=== PATIENT | female | born 1970 | race Caucasian/White ===

== ENCOUNTER → 2017-04-01 | Outpatient (CLI) | payer OTHER ==
--- NOTE | 2017-04-02 10:10 | MM ---
Reason for exam: screening (asymptomatic). Last mammogram was performed 4 years and 1 month ago. History: Patient is postmenopausal. Family history of breast cancer in 2 paternal aunts. Physical Findings: A clinical breast exam by your physician is recommended on an annual basis and results should be correlated with mammographic findings. MG Screening Mammo w CAD Bilateral CC and MLO view(s) were taken. Prior study comparison: March 16, 2013, bilateral digital screening mammo w/CAD. February 19, 2006, mammogram, performed at [facility]. There are scattered fibroglandular densities. There is no discrete abnormality. ASSESSMENT: Negative, BI-RAD 1 RECOMMENDATION: Routine screening mammogram of both breasts in 1 year.
== END | disposition home or self-care (01) ==
LOC: RADMAMWWP 10:05
PROVIDERS: ATTEND Family Medicine Adolescent Medicine
DX: Z12.31 Encounter for screening mammogram for malignant neoplasm of breast (principal)
CPT/HCPCS: 77067

== ENCOUNTER → 2017-10-31 | Outpatient (CLI) | payer OTHER ==
--- NOTE | 2017-10-31 11:52 | USB ---
Reason for exam: clinical finding. History: Patient is postmenopausal. Family history of breast cancer in 2 paternal aunts. Indicated problem(s): lump or thickening in the right breast. Physical Findings: Nurse Summary: Patient states doctor felt right breast lump x 1 week, Patient complains of bilatral breast achy x 2 months (nurse abran). US Breast BILAT Right complete breast ultrasound includes all four quadrants, the retroareolar region and axilla. Finding demonstrates no cystic or solid lesion seen. Left complete breast ultrasound includes all four quadrants, the retroareolar region and axilla. Finding demonstrates no cystic or solid lesion seen. These results were verbally communicated with the patient and result sheet given to the patient on 10/31/17. ASSESSMENT: Negative, BI-RAD 1 RECOMMENDATION: Return to routine screening mammogram schedule for both breasts. Back on schedule. Manage on a clinical basis with regard to palpable lumps.
== END ==
LOC: RADUSWWP 10:10
PROVIDERS: ATTEND Family Medicine
DX: N63.13 Unspecified lump in the right breast, lower outer quadrant (principal)

== ENCOUNTER 2018-05-27 01:52 | Emergency (ER) | payer OTHER ==
--- NOTE | 2018-05-27 03:09 | ED ---
Arrhythmia/Palpitations HPI - General Chief Complaint: Arrhythmia/Palpitations Stated Complaint: Chest tightness Time Seen by Provider: 05/27/18 02:09 Source: patient, EMS Mode of arrival: EMS Limitations: no limitations - History of Present Illness Initial Comments: This patient is a 48-year-old woman who presents to be evaluated for an episode of racing heart and shortness of breath. Patient states that she was trying to go to sleep tonight and then started awake noting that her heart was racing, and she was feeling somewhat short of breath. A family member checked her blood pressure and found that it was elevated. She states that for the past 2 weeks she also has had a sensation that her chest was full or she described this crowded. The patient states that over the following minutes the heart rate did seem to return to normal. The patient denies cardiac risk factors other than having a brother who had an WA at an early age. MD Complaint: "heart racing" -: minutes(s) Context: occurred during rest Associated Symptoms: shortness of breath - Related Data Allergies Allergy/AdvReac Type Severity Reaction Status Date / Time No Known Allergies Allergy Verified 05/27/18 03:07 Review of Systems ROS Statement: Those systems with pertinent positive or pertinent negative responses have been documented in the HPI. ROS Other: All systems not noted in ROS Statement are negative. Constitutional: Denies: fever, chills Respiratory: Reports: as per HPI, dyspnea. Denies: cough, wheezes, hemoptysis Cardiovascular: Reports: as per HPI, palpitations. Denies: dyspnea on exertion, orthopnea, edema, syncope Gastrointestinal: Denies: abdominal pain, nausea, vomiting Genitourinary: Denies: dysuria, hematuria Musculoskeletal: Denies: back pain Skin: Denies: rash Neurological: Denies: headache, weakness, numbness Past Medical History Past Medical History: Hypertension History of Any Multi-Drug Resistant Organisms: None Reported Past Surgical History: Appendectomy, Hysterectomy Past Psychological History: Anxiety Smoking Status: Former smoker Past Alcohol Use History: None Reported Past Drug Use History: Marijuana General Exam Limitations: no limitations General appearance: alert, in no apparent distress Head exam: Present: atraumatic, normocephalic Eye exam: Present: normal appearance. Absent: scleral icterus, conjunctival injection ENT exam: Present: normal oropharynx Respiratory exam: Present: normal lung sounds bilaterally. Absent: respiratory distress, wheezes, rales, rhonchi, stridor Cardiovascular Exam: Present: regular rate, normal rhythm, normal heart sounds. Absent: systolic murmur, diastolic murmur, rubs, gallop GI/Abdominal exam: Present: soft. Absent: distended, tenderness, guarding, rebound, mass Extremities exam: Present: normal inspection, normal capillary refill. Absent: pedal edema, calf tenderness Back exam: Present: normal inspection. Absent: CVA tenderness (R), CVA tenderness (L) Neurological exam: Present: alert Skin exam: Present: warm, dry, intact, normal color. Absent: rash Course Vital Signs 05/27/18 05/27/18 05/27/18 02:04 03:11 04:32 Temperature 98.0 F Pulse Rate 74 Respiratory 19 18 19 Rate Blood Pressure 152/99 O2 Sat by Pulse 100 Oximetry EKG Findings - EKG Results: EKG: interpreted by TIMBO, IRVINL, sinus rhythm (Rate 74 bpm), normal axis, normal QRS, normal ST/T - WA, Pacemaker, Normal: Normal tracing: normal tracing Medical Decision Making - Lab Data Result diagrams: 05/27/18 02:24 05/27/18 02:24 Lab Results 05/27/18 05/27/18 05/27/18 Range/Units 02:24 02:24 02:24 WBC 5.4 (3.8-10.6) k/uL RBC 4.85 (3.80-5.40) m/uL Hgb 14.4 (11.4-16.0) gm/dL Hct 43.7 (34.0-46.0) % MCV 90.1 (80.0-100.0) fL MCH 29.7 (25.0-35.0) pg MCHC 32.9 (31.0-37.0) g/dL RDW 13.8 (11.5-15.5) % Plt Count 273 (150-450) k/uL Neutrophils % 56 % Lymphocytes % 29 % Monocytes % 9 % Eosinophils % 3 % Basophils % 1 % Neutrophils # 3.0 (1.3-7.7) k/uL Lymphocytes # 1.6 (1.0-4.8) k/uL Monocytes # 0.5 (0-1.0) k/uL Eosinophils # 0.2 (0-0.7) k/uL Basophils # 0.1 (0-0.2) k/uL D-Dimer 0.36 (<0.60) mg/L FEU Sodium 138 (137-145) mmol/L Potassium 3.8 (3.5-5.1) mmol/L Chloride 108 H (98-107) mmol/L Carbon Dioxide 22 (22-30) mmol/L Anion Gap 8 mmol/L BUN 16 (7-17) mg/dL Creatinine 0.73 (0.52-1.04) mg/dL Est GFR (CKD-EPI)AfAm >90 (>60 ml/min/1.73 sqM) Est GFR (CKD-EPI)NonAf >90 (>60 ml/min/1.73 sqM) Glucose 90 (74-99) mg/dL Calcium 9.3 (8.4-10.2) mg/dL Magnesium 1.9 (1.6-2.3) mg/dL Total Bilirubin 0.7 (0.2-1.3) mg/dL AST 23 (14-36) U/L ALT 25 (9-52) U/L Alkaline Phosphatase 78 (38-126) U/L Troponin I (0.000-0.034) ng/mL Total Protein 6.7 (6.3-8.2) g/dL Albumin 3.8 (3.5-5.0) g/dL TSH 1.870 (0.465-4.680) mIU/L 05/27/18 Range/Units 02:24 WBC (3.8-10.6) k/uL RBC (3.80-5.40) m/uL Hgb (11.4-16.0) gm/dL Hct (34.0-46.0) % MCV (80.0-100.0) fL MCH (25.0-35.0) pg MCHC (31.0-37.0) g/dL RDW (11.5-15.5) % Plt Count (150-450) k/uL Neutrophils % % Lymphocytes % % Monocytes % % Eosinophils % % Basophils % % Neutrophils # (1.3-7.7) k/uL Lymphocytes # (1.0-4.8) k/uL Monocytes # (0-1.0) k/uL Eosinophils # (0-0.7) k/uL Basophils # (0-0.2) k/uL D-Dimer (<0.60) mg/L FEU Sodium (137-145) mmol/L Potassium (3.5-5.1) mmol/L Chloride (98-107) mmol/L Carbon Dioxide (22-30) mmol/L Anion Gap mmol/L BUN (7-17) mg/dL Creatinine (0.52-1.04) mg/dL Est GFR (CKD-EPI)AfAm (>60 ml/min/1.73 sqM) Est GFR (CKD-EPI)NonAf (>60 ml/min/1.73 sqM) Glucose (74-99) mg/dL Calcium (8.4-10.2) mg/dL Magnesium (1.6-2.3) mg/dL Total Bilirubin (0.2-1.3) mg/dL AST (14-36) U/L ALT (9-52) U/L Alkaline Phosphatase (38-126) U/L Troponin I <0.012 (0.000-0.034) ng/mL Total Protein (6.3-8.2) g/dL Albumin (3.5-5.0) g/dL TSH (0.465-4.680) mIU/L Disposition Clinical Impression: Palpitations, Sleep apnea Disposition: HOME SELF-CARE Condition: Good Instructions (If sedation given, give patient instructions): Heart Palpitations (ED) Is patient prescribed a controlled substance at d/c from ED?: No Referrals: Erlinda Angela DO [Primary Care Provider] - 1-2 days
--- NOTE | 2018-05-27 03:41 | XR ---
EXAM: XR Chest, 1 View CLINICAL HISTORY: dysrhythmia TECHNIQUE: Frontal view of the chest. COMPARISON: No relevant prior studies available. FINDINGS: Lungs: No focal consolidation. The pulmonary vasculature appears to be within normal limits. Pleural space: No large pleural effusion. No pneumothorax. Heart: The cardiac silhouette is within normal limits. Mediastinum: The mediastinal contours are unremarkable. Bones/joints: Unremarkable. IMPRESSION: No acute cardiopulmonary process identified radiographically.
[2018-05-27 03:42] LABS: Basophils # (A) 0.1 k/uL (0-0.2); Basophils % (A) 1 %; Eosinophils # (A) 0.2 k/uL (0-0.7); Eosinophils % (A) 3 %; HCT 43.7 % (34.0-46.0); HGB 14.4 gm/dL (11.4-16.0); Lymphocytes # (A) 1.6 k/uL (1.0-4.8); Lymphocytes % (A) 29 %; MCH 29.7 pg (25.0-35.0); MCHC 32.9 g/dL (31.0-37.0); MCV 90.1 fL (80.0-100.0); Mean Platelet Volume 6.4; Monocytes # (A) 0.5 k/uL (0-1.0); Monocytes % (A) 9 %; Neutrophils % (A) 56 %; Platelet Count 273 k/uL (150-450); RBC 4.85 m/uL (3.80-5.40); RDW 13.8 % (11.5-15.5); WBC 5.4 k/uL (3.8-10.6)
[2018-05-27 04:18] LABS: ALT 25 U/L (9-52); AST 23 U/L (14-36); Albumin 3.8 g/dL (3.5-5.0); Alkaline Phosphatase 78 U/L (38-126); Anion Gap 8 mmol/L; Blood Urea Nitrogen 16 mg/dL (7-17); Calcium 9.3 mg/dL (8.4-10.2); Carbon Dioxide 22 mmol/L (22-30); Chloride 108 mmol/L (98-107); Glucose 90 mg/dL (74-99); Magnesium 1.9 mg/dL (1.6-2.3); Potassium 3.8 mmol/L (3.5-5.1); Sodium 138 mmol/L (137-145); Total Bilirubin 0.7 mg/dL (0.2-1.3); Total Protein 6.7 g/dL (6.3-8.2)
[2018-05-27 05:22] VITALS: BP 142/95; PULSE 65; RESP 20; TEMP 98.1
== END 2018-05-27 05:12 | disposition home or self-care (01) ==
LOC: EC 01:52
DX: G47.30 Sleep apnea, unspecified (principal); R00.2 Palpitations; R07.89 Other chest pain; R06.02 Shortness of breath; I25.2 Old myocardial infarction; Z87.891 Personal history of nicotine dependence
CPT/HCPCS: 36415; 71045; 80053; 83735; 84443; 84484; 85025; 85379; 93005; 99285

== ENCOUNTER → 2019-09-22 | Outpatient (CLI) | payer OTHER ==
--- NOTE | 2019-09-28 10:36 | MM ---
Reason for exam: screening (asymptomatic). Last mammogram was performed 2 years and 6 months ago. History: Patient is postmenopausal. Family history of breast cancer in 2 paternal aunts. Physical Findings: A clinical breast exam by your physician is recommended on an annual basis and results should be correlated with mammographic findings. MG 3D Screening Mammo W/Cad Bilateral CC and MLO view(s) were taken. Prior study comparison: April 01, 2017, bilateral MG screening mammo w CAD. March 16, 2013, bilateral digital screening mammo w/CAD. The breast tissue is heterogeneously dense. This may lower the sensitivity of mammography. No significant changes when compared with prior studies. ASSESSMENT: Benign, BI-RAD 2 RECOMMENDATION: Routine screening mammogram of both breasts in 1 year.
== END | disposition home or self-care (01) ==
LOC: RADMAMWWP 11:11
PROVIDERS: ATTEND Family Medicine
DX: Z12.31 Encounter for screening mammogram for malignant neoplasm of breast (principal)
CPT/HCPCS: 77063; 77067

== ENCOUNTER 2019-10-08 10:47 | Day surgery (SDC) | payer OTHER ==
[2019-10-06 13:44] VITALS: BMI 40.7
[~2019-10-08 10:47] MED LIST: LACTATED RINGERS 1,000 ML IV SCH
[2019-10-08 11:16] VITALS: RESP 16; TEMP 98.5
[2019-10-08] MEDS ORDERED: PROPOFOL 10 MG/ML 20 ML VIAL IV ONE (11:46)
--- NOTE | 2019-10-08 11:51 | P.GSHP ---
History of Present Illness H&P Date: 10/08/19 Chief Complaint: Blood in stool This a 49-year-old female resents today for colonoscopy. Patient's had issues GI bleed. She's also change in bowel habits. Past Medical History Past Medical History: Hypertension Additional Past Medical History / Comment(s): loose stools for past few months, History of Any Multi-Drug Resistant Organisms: None Reported Past Surgical History: Appendectomy, Bladder Surgery, Hysterectomy Additional Past Surgical History / Comment(s): bladder suspension with hysterectomy Past Anesthesia/Blood Transfusion Reactions: Motion Sickness Smoking Status: Former smoker - Past Family History Brother(s) Family Medical History: Deep Vein Thrombosis (DVT) Medications and Allergies Home Medications Medication Instructions Recorded Confirmed Type Benazepril HCl 20 mg PO HS 10/06/19 10/08/19 History Loratadine-Pseudoeph 10-240 mg 1 tab PO HS 10/06/19 10/08/19 History [Claritin-D 24 Hour] Multivitamins, Thera [Multivitamin 1 tab PO DAILY 10/06/19 10/08/19 History (formulary)] Allergies Allergy/AdvReac Type Severity Reaction Status Date / Time No Known Allergies Allergy Verified 10/08/19 11:05 Surgical - Exam Vital Signs Temp Pulse Resp BP Pulse Ox 98.5 F 81 16 149/98 94 L 10/08/19 11:07 10/08/19 11:07 10/08/19 11:07 10/08/19 11:07 10/08/19 11:07 - General well developed, well nourished, no distress - Eyes PERRL - ENT normal pinna - Neck no masses - Respiratory normal expansion - Cardiovascular Rhythm: regular - Abdomen Abdomen: soft, non tender Assessment and Plan Assessment: GI bleed. We'll perform colonoscopy.
--- NOTE | 2019-10-08 11:58 | P.OP ---
Date of Procedure: 10/08/19 Preoperative Diagnosis: GI bleed Postoperative Diagnosis: External hemorrhoids Diverticulosis Procedure(s) Performed: Colonoscopy Anesthesia: MAC Surgeon: Justus Ward Pathology: none sent Condition: stable Disposition: PACU Description of Procedure: The patient's placed on the endoscopy table in the lateral position. She received IV sedation. Digital rectal exam was performed which revealed a external hemorrhoids Next the colonoscope was then placed patient anus and passed throughout the entire colon. The ileocecal valve was visualized. Cecum ascending colon appeared normal. In the transverse and descending colon there was moderate diverticular changes. Scope was then brought back and sigmoid colon more diverticuli was seen. The scope summer back the rectum and this appeared normal. Scope patient. Resume the patient's GI bleeding is due to external hemorrhoids.
[2019-10-08 12:22] VITALS: BP 144/85; PULSE 82
== END 2019-10-08 12:47 | disposition home or self-care (01) ==
LOC: ORWHC2ENDO 10:47
PROVIDERS: ATTEND Surgery
DX: K64.4 Residual hemorrhoidal skin tags (principal); K57.31 Diverticulosis of large intestine without perforation or abscess with bleeding; I10 Essential (primary) hypertension; Z90.49 Acquired absence of other specified parts of digestive tract; Z98.890 Other specified postprocedural states; Z90.710 Acquired absence of both cervix and uterus; Z87.898 Personal history of other specified conditions; Z87.891 Personal history of nicotine dependence; Z79.899 Other long term (current) drug therapy; Z82.49 Family history of ischemic heart disease and other diseases of the circulatory system
CPT/HCPCS: 45378; J2704

== ENCOUNTER 2020-03-24 10:52 | Observation (INO) | payer OTHER ==
[2020-03-24] MEDS ORDERED: SODIUM CHLORIDE 0.9% 500 ML 500 ML IV STA (11:03)
--- NOTE | 2020-03-24 11:06 | ED ---
Chest Pain HPI - General Chief Complaint: Chest Pain Stated Complaint: chest discomfort Time Seen by Provider: 03/24/20 10:59 Source: patient, RN notes reviewed Mode of arrival: ambulatory Limitations: no limitations - History of Present Illness Initial Comments: This is a 50-year-old female presents to the emergency Department with chief complaint of chest pain. Patient states she woke up this morning states that she did not feel well states that she has some pressure in her chest central to left-sided. She states it's substernal. Patient states that she feels the pain makes her short of breath. She denies any fevers or chills patient does have a history of hypertension and family heart disease. Patient states that her brother had a heart attack at 34. Patient has no complaints of abdominal pain including nausea vomiting diarrhea constipation no point of heartburn. Nothing makes pain feel better or worse at this time. No leg pain or leg swelling no history of PE or DVT. - Related Data Home Medications Medication Instructions Recorded Confirmed Benazepril HCl 20 mg PO HS 10/06/19 03/24/20 Apple Cider Vinegar Gummies 500 mg PO BID 03/24/20 03/24/20 Allergies Allergy/AdvReac Type Severity Reaction Status Date / Time No Known Allergies Allergy Verified 03/24/20 11:28 Review of Systems ROS Statement: Those systems with pertinent positive or pertinent negative responses have been documented in the HPI. ROS Other: All systems not noted in ROS Statement are negative. EKG Findings - EKG Comments: EKG Findings:: EKG performed at 11:07 normal sinus rhythm rate of 74 RI 154 QRS 72 QT/QTC 366/406 - EKG Results: EKG: interpreted by TIMBO Past Medical History Past Medical History: Hypertension Additional Past Medical History / Comment(s): loose stools for past few months, History of Any Multi-Drug Resistant Organisms: None Reported Past Surgical History: Appendectomy, Bladder Surgery, Hysterectomy Additional Past Surgical History / Comment(s): bladder suspension with hysterectomy Past Anesthesia/Blood Transfusion Reactions: Motion Sickness Past Psychological History: No Psychological Hx Reported Smoking Status: Former smoker Past Alcohol Use History: None Reported Past Drug Use History: Marijuana - Past Family History Brother(s) Family Medical History: Deep Vein Thrombosis (DVT) General Exam Limitations: no limitations General appearance: alert, in no apparent distress Head exam: Present: atraumatic, normocephalic, normal inspection Eye exam: Present: normal appearance, PERRL, EOMI. Absent: scleral icterus, conjunctival injection, periorbital swelling ENT exam: Present: normal exam, normal oropharynx, mucous membranes moist Neck exam: Present: normal inspection, full ROM. Absent: tenderness, meningismus, lymphadenopathy Respiratory exam: Present: normal lung sounds bilaterally. Absent: respiratory distress, wheezes, rales, rhonchi, stridor, chest wall tenderness Cardiovascular Exam: Present: regular rate, normal rhythm, normal heart sounds. Absent: systolic murmur, diastolic murmur, rubs, gallop, clicks GI/Abdominal exam: Present: soft, normal bowel sounds. Absent: distended, tenderness, guarding, rebound, rigid Neurological exam: Present: alert, oriented X3, CN II-XII intact Skin exam: Present: warm, dry, intact, normal color. Absent: rash Course Vital Signs 03/24/20 10:53 Temperature 98.4 F Pulse Rate 79 Respiratory 18 Rate Blood Pressure 167/96 O2 Sat by Pulse 98 Oximetry Chest Pain [facility] 50-year-old female presented for chest pain. Patient's initial workup was negative, patient has multiple risk factors patient will be admitted for cardiac rule out patient did receive aspirin prior to arrival. Disposition Clinical Impression: Chest pain Disposition: ADMITTED IP TO THIS HOSP Condition: Fair Referrals: Erlinda Angela DO [Primary Care Provider] - 1-2 days
[2020-03-24 11:30] LABS: D-Dimer 0.45 mg/L FEU (<0.60); Prothrombin Time 10.4 sec (9.0-12.0)
[2020-03-24 11:31] LABS: ALT 23 U/L (4-34); AST 31 U/L (14-36); African American GFR (CKD) >90 (>60 ml/min/1.73 sqM); Albumin 4.9 g/dL (3.5-5.0); Alkaline Phosphatase 76 U/L (38-126); Anion Gap 11 mmol/L; Blood Urea Nitrogen 12 mg/dL (7-17); Calcium 9.6 mg/dL (8.4-10.2); Carbon Dioxide 24 mmol/L (22-30); Chloride 103 mmol/L (98-107); Glucose 100 mg/dL (74-99); Lipase 145 U/L (23-300); Magnesium 1.9 mg/dL (1.6-2.3); Non-African American GFR(CKD) >90 (>60 ml/min/1.73 sqM); Potassium 4.1 mmol/L (3.5-5.1); Sodium 138 mmol/L (137-145); Total Bilirubin 0.9 mg/dL (0.2-1.3); Total Protein 8.5 g/dL (6.3-8.2)
--- NOTE | 2020-03-24 11:31 | XR ---
EXAMINATION TYPE: XR chest 2V DATE OF EXAM: 03/24/2020 COMPARISON: Chest x-ray May 27, 2018. HISTORY: Chest pain. TECHNIQUE: Frontal and lateral views of the chest are obtained. FINDINGS: There is no focal air space opacity, pleural effusion, or pneumothorax seen. The cardiac silhouette size remains within normal limits. The osseous structures are intact. Overlying EKG lead s on current study. IMPRESSION: No acute cardiopulmonary process. No significant change from prior.
[2020-03-24 11:36] LABS: MCH 30.8 pg (25.0-35.0); MCHC 33.3 g/dL (31.0-37.0); MCV 92.6 fL (80.0-100.0); Mean Platelet Volume 6.4; Platelet Count 316 k/uL (150-450); RBC 5.18 m/uL (3.80-5.40); RDW 13.4 % (11.5-15.5); WBC 4.7 k/uL (3.8-10.6)
[2020-03-24] MEDS ORDERED: HEPARIN SODIUM,PORCINE 5,000 UNIT/ML 1 ML VIAL IV ONE (12:04)
[2020-03-24] MEDS ORDERED: NITROGLYCERIN SL TABS 0.4 MG TAB SUBLINGUAL PRN (12:04)
[2020-03-24 12:06] LABS: Band Neutrophils % 1 %; Basophils # (M) 0.05 k/uL (0-0.2); Eosinophils # (M) 0.14 k/uL (0-0.7); Lymphocytes # (M) 1.69 k/uL (1.0-4.8); Monocytes # (M) 0.47 k/uL (0-1.0); Neutrophils % (M) 51 %; Nucleated Red Blood Cells 0 /100 WBC (0-0); Total Cells Counted 200
[2020-03-24] MEDS ORDERED: HEPARIN SOD,PORK IN 0.45% NACL 25,000 UNIT in 0.45% NACL 1 250ML.BAG IV SCH (12:15)
[2020-03-24] MEDS ORDERED: ALPRAZolam 0.25 MG TAB PO PRN (15:59)
[2020-03-24] MEDS ORDERED: HYDROcodone/APAP 5-325MG 1 EACH TAB PO PRN (15:59)
--- NOTE | 2020-03-24 17:20 | HP ---
HISTORY AND PHYSICAL DATE OF SERVICE: 03/24/2020 CHIEF COMPLAINT: Chest pain. HISTORY OF PRESENT ILLNESS: This 50-year-old woman with a past medical history of multiple medical problems, including hypertension, history of palpitations, diverticular disease, being followed by Dr. Angela in the outpatient setting, was complaining of chest pain. The patient woke up this morning with the pain felt in the anterior part of the chest and there was some pressure on the left side also. The patient had some associated shortness of breath. The patient had a brother who had myocardial infarction at the age of 34, but the brother was smoking heavily, according to her. There is no history of any fever, rigor or chills. No history of headache, loss of consciousness, seizures. The patient is admitted for further evaluation and treatment. Initial troponins are negative. Cardiology evaluation is in progress. EKG showed no acute abnormalities, either. PAST MEDICAL HISTORY: History of hypertension, history of palpitations, diverticular disease. MEDICATIONS: Medications prior to admission: Benazepril, apple cider vinegar. ALLERGIES: NONE. FAMILY HISTORY: History of DVT, history of myocardial infarction, as mentioned earlier. REVIEW OF SYSTEMS: ENT: No diminished hearing. No diminished vision. CARDIOVASCULAR SYSTEM: As mentioned earlier. RESPIRATORY SYSTEM: As mentioned earlier. GI: No nausea, vomiting. : No dysuria or retention. NERVOUS SYSTEM: No numbness, weakness. ALLERGY/IMMUNOLOGY: No asthma, hayfever. MUSCULOSKELETAL: As mentioned earlier. HEMATOLOGY/ONCOLOGY: No history of anemia. ENDOCRINE: No history of diabetes, hypothyroidism. CONSTITUTIONAL: As mentioned earlier. DERMATOLOGY: Negative. RHEUMATOLOGY: Negative. PSYCHIATRY: As mentioned earlier. PHYSICAL EXAMINATION: Patient alert and oriented x3. Pulse 70, blood pressure 133/86, respirations 16, temperature 97.8, pulse ox 100% on room air. HEENT: Conjunctivae normal. NECK: No jugular venous distention. CARDIOVASCULAR SYSTEM: S1, S2 muffled. RESPIRATORY SYSTEM: Breath sounds diminished at the bases. No rhonchi. No crackles. ABDOMEN: Soft, obese, non-tender. No mass palpable. LEGS: No edema. No swelling. NERVOUS SYSTEM: Higher functions as mentioned earlier. Moves all 4 limbs. No focal motor or sensory deficit. LYMPHATICS: No lymph node palpable in neck, axillae or groin. SKIN: No ulcer, rash, bleeding. JOINTS: No active deforming arthropathy. LABS: CBC within normal limits. Hematocrit is 48, glucose 100. Troponins are negative. EKG noted. ASSESSMENT: 1. Chest pain, possible unstable angina. 2. Family history of premature coronary artery disease. 3. Hypertension. 4. History of palpitations. 5. History of diverticular disease. 6. History of bladder surgery. 7. History of hysterectomy. 8. Remote history of nicotine dependence. 9. History of tetrahydrocannabinol. 10.Obesity with body mass index of 41. RECOMMENDATIONS AND DISCUSSION: In this 50-year-old woman who presented with multiple complex medical issues, we will monitor the patient closely, continue the current medications, continue with symptomatic treatment. IV heparin initiated. Rule out myocardial infarction. Unstable angina protocol. Cardiology consultation. Possible stress test. Guarded prognosis because of multiple complex medical issues. Further recommendations to follow. A copy of this dictation is being forwarded to Dr. Angela, who is the primary physician. MMREJIL / IJN: [id number] /
[2020-03-24] MEDS: PANTOPRAZOLE 40 MG/10 ML VIAL IVP SCH (17:23)
[2020-03-24 17:45] LABS: Appearance,Urine Clear (Clear); Bilirubin,Urine Negative (Negative); Blood,Urine Negative (Negative); Color,Urine Yellow; Glucose,Urine (UA) Negative (Negative); Ketones,Urine 1+ (Negative); Leukocyte Esterase,Urine Negative (Negative); Nitrite,Urine Negative (Negative); PH, Urine 6.5 (5.0-8.0); Protein,Urine Negative (Negative); Specific Gravity,Urine 1.022 (1.001-1.035)
--- NOTE | 2020-03-24 18:19 | ECHOF ---
Referral Reason:chest pain MEASUREMENTS -------- HEIGHT: 160.0 cm WEIGHT: 105.2 kg BP: 167/96 RVIDd: 3.0 cm (< 3.3) IVSd: 0.9 cm (0.6 - 1.1) LVIDd: 4.6 cm (3.9 - 5.3) LVPWd: 0.9 cm (0.6 - 1.1) IVSs: 1.6 cm LVIDs: 2.7 cm LVPWs: 1.4 cm LA Diam: 3.8 cm (2.7 - 3.8) LAESV Index (A-L): 27.93 ml/m Ao Diam: 2.8 cm (2.0 - 3.7) AV Cusp: 1.7 cm (1.5 - 2.6) MV EXCURSION: 11.081 mm (> 18.000) MV EF SLOPE: 53 mm/s (70 - 150) EPSS: 0.9 cm MV E Miquel: 0.96 m/s MV DecT: 209 ms MV A Miquel: 1.03 m/s MV E/A Ratio: 0.93 RAP: 5.00 mmHg RVSP: 30.55 mmHg FINDINGS -------- Sinus rhythm. This was a technically adequate study. The left ventricular size is normal. Left ventricular wall thickness is normal. Overall left vent ricular systolic function is normal with, an EF between 60 - 65 %. The right ventricle is normal in size. Normal LA size by volume 22+/-6 ml/m2. The right atrium is normal in size. Interatrial and interventricular septum intact. The aortic valve is trileaflet and appears structurally normal. There is trace to mild mitral regurgitation. Mild tricuspid regurgitation present. Right ventricular systolic pressure is normal at < 35 mmHg. Trace/mild (physiologic) pulmonic regurgitation. The aortic root size is normal. IVC Not well visulized. There is no pericardial effusion. CONCLUSIONS -------- 1. The left ventricular size is normal. 2. Left ventricular wall thickness is normal. 3. Overall left ventricular systolic function is normal with, an EF between 60 - 65 %. 4. There is trace to mild mitral regurgitation. 5. Mild tricuspid regurgitation present. 6. Trace/mild (physiologic) pulmonic regurgitation. 7. There is no pericardial effusion. PEST TECHNICIAN: ALESHIA Burnette
[2020-03-24] MEDS ORDERED: HEPARIN SODIUM,PORCINE 5,000 UNIT/ML 1 ML VIAL IV PRN (20:22)
[2020-03-24] MEDS ORDERED: lisinopriL 20 MG TAB PO SCH (21:00)
[2020-03-25 02:39] VITALS: RESP 16
[2020-03-25 07:33] VITALS: BP 118/74; PULSE 72; TEMP 97.6
[2020-03-25 08:34] LABS: Mean Platelet Volume 6.5; Platelet Count 277 k/uL (150-450)
[2020-03-25 08:41] LABS: Basophils # (A) 0.1 k/uL (0-0.2); Basophils % (A) 1 %; Eosinophils # (A) 0.2 k/uL (0-0.7); Eosinophils % (A) 4 %; HCT 44.8 % (34.0-46.0); HGB 14.8 gm/dL (11.4-16.0); Lymphocytes # (A) 1.8 k/uL (1.0-4.8); Lymphocytes % (A) 33 %; MCH 30.5 pg (25.0-35.0); MCHC 32.9 g/dL (31.0-37.0); MCV 92.7 fL (80.0-100.0); Monocytes # (A) 0.4 k/uL (0-1.0); Monocytes % (A) 7 %; Neutrophils # (A) 2.8 k/uL (1.3-7.7); Neutrophils % (A) 51 %; RBC 4.84 m/uL (3.80-5.40); RDW 12.9 % (11.5-15.5); WBC 5.4 k/uL (3.8-10.6)
[2020-03-25] MEDS ORDERED: ASPIRIN 325 MG TAB PO SCH (09:00)
[2020-03-25] MEDS: PANTOPRAZOLE 40 MG/10 ML VIAL IVP SCH (09:21)
--- NOTE | 2020-03-25 10:57 | P.CRDCN ---
History of Present Illness Consult date: 03/25/20 History of present illness: This is a 50-year-old female with history of hypertension, palpitations and anxiety was admitted to the hospital with complaints of episodes of chest pain. Patient claims that she wakes up in the morning with some burning and tight feeling in the chest. This started last Saturday and has been bothering IV morning. During the daytime when she is working, she doesn't feel the discomfort. No definite radiation. Not related to any dysphagia parts of body movements. Her cardiac enzymes are negative. Her EKG is normal. Her chest pains appear to be atypical. Patient is going to have a stress echocardiogram. If that is in normal, patient will be discharged home. Review of Systems As per the chart Past Medical History Past Medical History: Hypertension Additional Past Medical History / Comment(s): Palpitations, diverticular disease History of Any Multi-Drug Resistant Organisms: None Reported Past Surgical History: Appendectomy, Bladder Surgery, Hysterectomy Additional Past Surgical History / Comment(s): bladder suspension with hysterectomy, colonoscopy Past Anesthesia/Blood Transfusion Reactions: No Reported Reaction, Motion Sickne ss Smoking Status: Former smoker - Past Family History Brother(s) Family Medical History: Deep Vein Thrombosis (DVT), Myocardial Infarction (NH) Additional Family Medical History / Comment(s): Brother had a NH at the age of 34yrs. Mother Family Medical History: Hypertension Father Family Medical History: No Reported History Medications and Allergies Home Medications Medication Instructions Recorded Confirmed Type Benazepril HCl 20 mg PO HS 10/06/19 03/24/20 History Apple Cider Vinegar Gummies 500 mg PO BID 03/24/20 03/24/20 History Allergies Allergy/AdvReac Type Severity Reaction Status Date / Time No Known Allergies Allergy Verified 03/24/20 11:28 Physical Exam Vitals: Vital Signs Temp Pulse Pulse Resp BP BP Pulse Ox 03/25/20 07:29 97.6 F 72 16 118/74 99 03/25/20 02:00 98 F 71 16 90/55 96 03/24/20 19:38 98.1 F 83 18 138/83 97 03/24/20 14:00 97.8 F 70 16 133/86 100 03/24/20 13:32 85 18 143/86 98 Intake and Output 03/24/20 03/25/20 03/25/20 22:59 06:59 14:59 Intake Total 114 73.033 Balance 114 73.033 Intake: Intake, IV Titration 114 73.033 Amount Heparin Sod,Pork in 0.45% 114 73.033 NaCl 25,000 unit In 0.45 % NaCl 1 250ml.bag @ 9. 503 UNITS/KG/HR 10 mls/hr IV .Q24H [facility] Rx#: [id number] Other: Voiding Method Toilet # Voids 2 3 GENERAL EXAM: Patient is alert and oriented and doesn't appear to be in any ac bois forte distress HEENT: Normocephalic. Normal reaction of pupils, equal size, normal range of extraocular motion. No erythema or exudates in the throat. NECK: No masses, no nuchal rigidity. CHEST: No chest wall deformity. LUNGS: Equal air entry with no crackles or wheeze. HEART: S1 and S2 normal with no audible mumurs or gallops. Regular rhythm, femorals equal on both sides.. ABDOMEN: No hepatosplenomegaly, normal bowel sounds, no guarding or rigidity. SKIN: No rashes CENTRAL NERVOUS SYSTEM: No focal deficits. EXTREMITIES: No cyanosis, clubbing or edema. Results 03/25/20 07:54 03/24/20 11:06 Cardiac Enzymes 03/24/20 03/24/20 03/24/20 Range/Units 11:06 11:06 14:36 AST 31 (14-36) U/L Troponin I <0.012 <0.012 (0.000-0.034) ng/mL 03/24/20 Range/Units 19:10 AST (14-36) U/L Troponin I <0.012 (0.000-0.034) ng/mL Coagulation 03/24/20 03/24/20 03/25/20 Range/Units 11:06 19:10 01:21 PT 10.4 (9.0-12.0) sec APTT 23.0 43.4 H 101.1 H* (22.0-30.0) sec 03/25/20 Range/Units 07:54 PT (9.0-12.0) sec APTT 61.1 H (22.0-30.0) sec CBC 03/24/20 03/25/20 Range/Units 11:06 07:54 WBC 4.7 5.4 (3.8-10.6) k/uL RBC 5.18 4.84 (3.80-5.40) m/uL Hgb 16.0 14.8 (11.4-16.0) gm/dL Hct 48.0 H 44.8 (34.0-46.0) % Plt Count 316 277 (150-450) k/uL Comprehensive Metabolic Panel 03/24/20 Range/Units 11:06 Sodium 138 (137-145) mmol/L Potassium 4.1 (3.5-5.1) mmol/L Chloride 103 (98-107) mmol/L Carbon Dioxide 24 (22-30) mmol/L BUN 12 (7-17) mg/dL Creatinine 0.64 (0.52-1.04) mg/dL Glucose 100 H (74-99) mg/dL Calcium 9.6 (8.4-10.2) mg/dL AST 31 (14-36) U/L ALT 23 (4-34) U/L Alkaline Phosphatase 76 (38-126) U/L Total Protein 8.5 H (6.3-8.2) g/dL Albumin 4.9 (3.5-5.0) g/dL Current Medications Generic Name Dose Route Start Last Admin Trade Name Freq PRN Reason Stop Dose Admin Hydrocodone Bitart/Acetaminophen 1 each 03/24/20 15:59 Hydrocodone/Apap 5-325mg 1 Each Tab PO Q6HR PRN Pain Alprazolam 0.25 mg 03/24/20 15:59 Alprazolam 0.25 Mg Tab PO TID PRN Anxiety Heparin Sodium (Porcine) 0 unit 03/24/20 20:22 03/24/20 20:28 Heparin Sodium,Porcine 5,000 Unit/Ml 1 Ml Vial IV 2,625 unit PER PROTOCOL PRN Administration Low PTT Protocol Lisinopril 20 mg 03/24/20 21:00 03/24/20 20:28 Lisinopril 20 Mg Tab PO 20 mg HS [facility] Administration Nitroglycerin 0.4 mg 03/24/20 12:04 Nitroglycerin Sl Tabs 0.4 Mg Tab SUBLINGUAL Q5M PRN Chest Pain Pantoprazole Sodium 40 mg 03/24/20 16:00 03/25/20 09:21 Pantoprazole 40 Mg/10 Ml Vial IVP 40 mg DAILY [facility] Administration Intake and Output 03/24/20 03/25/20 03/25/20 22:59 06:59 14:59 Intake Total 114 73.033 Balance 114 73.033 Intake: Intake, IV Titration 114 73.033 Amount Heparin Sod,Pork in 0.45% 114 73.033 NaCl 25,000 unit In 0.45 % NaCl 1 250ml.bag @ 9. 503 UNITS/KG/HR 10 mls/hr IV .Q24H [facility] Rx#: [id number] Other: Voiding Method Toilet # Voids 2 3 03/25/20 07:54 03/24/20 11:06 EKG Interpretations (text) Sinus rhythm Assessment and Plan (1) Essential hypertension Current Visit: Yes Status: Acute Code(s): I10 - ESSENTIAL (PRIMARY) HYPERTENSION SNOMED Code(s): 64348604 (2) Chest pain Current Visit: Yes Status: Acute Code(s): R07.9 - CHEST PAIN, UNSPECIFIED SNOMED Code(s): 00418316 (3) Anxiety Current Visit: Yes Status: Acute Code(s): F41.9 - ANXIETY DISORDER, UNSPECIFIED SNOMED Code(s): 07334396 Plan: Her chest pains are atypical. So far cardiac enzymes and EKGs are negative. Patient is going to have stress echo. If the stress echo is negative patient will be discharged home.
--- NOTE | 2020-03-25 14:14 | P.STRESS ---
- Stress Test Note Stress Test Results/Findings: Exam Performed: stress echo exercise Exam Date: 03/25/20 Reason for Exam: Chest Pain Height: 5 ft 3 in Weight: 105.23 kg Protocol: Darrian Stage: 2 Duration of Exercise: 6:30 Resting Heart Rate: 80 Resting Blood Pressure: 158/93 Maximum Achieved Heart Rate: 163 Maximum Achieved Blood Pressure: 177/91 85% PMHR: 145 100% PMHR: 170 METS: 7.9 Technologist Comment: Stress Test Results/Findings: This is a 50-year-old female with history of hypertension and smoking being evaluated for symptoms of chest pain and palpitations. Stress data: Baseline EKG showed sinus rhythm with normal OK interval and QRS duration. Blood pressure at rest is 158/93, pulse rate of 80. Patient walked on a Darrian protocol for 6 minutes and 30 seconds achieving a maximal heart rate of 163 with blood pressure 177/91. EKGs taken during and after x-ray did not reveal any changes of ischemia. Patient did not experience any chest pain. Echo data: Baseline echo images show normal wall motion and thickening. Exercise echo images showed augmentation of the wall motion and thickening in all the segments. Final impression #1. Negative stress test #2. Negative stress echo
--- NOTE | 2020-03-25 15:58 | ECHOS ---
Stress Test Results/Findings: Exam Performed: stress echo exercise Exam Date: 03/25/20 Reason for Exam: Chest Pain Height: 5 ft 3 in Weight: 105.23 kg Protocol: Darrian Stage: 2 Duration of Exercise: 6:30 Resting Heart Rate: 80 Resting Blood Pressure: 158/93 Maximum Achieved Heart Rate: 163 Maximum Achieved Blood Pressure: 177/91 85% PMHR: 145 100% PMHR: 170 METS: 7.9 Technologist Comment: Stress Test Results/Findings: This is a 50-year-old female with history of hypertension and smoking being evaluated for symptoms of chest pain and palpitations. Stress data: Baseline EKG showed sinus rhythm with normal IL interval and QRS duration. Blood pressure at rest is 158/93, pulse rate of 80. Patient walked on a Darrian protocol for 6 minutes and 30 seconds achieving a maximal heart rate of 163 with blood pressure 177/91. EKGs taken during and after x-ray did not reveal any changes of ischemia. Patient did not experience any chest pain. Echo data: Baseline echo images show normal wall motion and thickening. Exercise echo images showed augmentation of the wall motion and thickening in all the segments. Final impression #1. Negative stress test #2. Negative stress echo MTDD
[2020-03-25 21:47] LABS: African American GFR (CKD) 117.1 (60.0-200.0); Anion Gap 9.6 mmol/L (4.00-12.00); Calcium 8.9 mg/dL (8.7-10.3); Carbon Dioxide 23.4 mmol/L (21.6-31.8); Chol/HDL Ratio 2.89; LDL Cholesterol,Calculated 98.6 mg/dL (0.0-131.0); Potassium 3.8 mmol/L (3.5-5.5); VLDL Calculation 18.4 mg/dL (5.00-40.00)
[2020-03-26] MEDS ORDERED: PANTOPRAZOLE 40 MG TABLET PO SCH (07:30)
== END 2020-03-25 15:27 | disposition home or self-care (01) ==
LOC: EC 10:52 → 6NMEDSUR 12:04
PROVIDERS: ADMIT Hospitalist; ATTEND Hospitalist
DX: R07.89 Other chest pain (principal); R06.02 Shortness of breath; I10 Essential (primary) hypertension; K57.90 Diverticulosis of intestine, part unspecified, without perforation or abscess without bleeding; R00.2 Palpitations; E66.9 Obesity, unspecified; Z68.41 Body mass index [BMI] 40.0-44.9, adult; F41.9 Anxiety disorder, unspecified; Z79.899 Other long term (current) drug therapy; Z90.710 Acquired absence of both cervix and uterus; Z90.49 Acquired absence of other specified parts of digestive tract; Z87.891 Personal history of nicotine dependence; Z82.49 Family history of ischemic heart disease and other diseases of the circulatory system; Z81.2 Family history of tobacco abuse and dependence
CPT/HCPCS: 96376 ×3; 96366 ×2; 96375; 93005 ×2; 96361; 96365; 99285; 36415; 93306; 93351; 85379; 80061; 80053; 80048; 83690; 83735; 84484; 85025 ×2; 85610; 85730 ×2; 81003; 71046; G0378 ×2; J1644 ×2; C9113 ×2

== ENCOUNTER 2021-07-14 08:15 | Day surgery (SDC) | payer BC, OTHER ==
[2021-07-13 14:55] VITALS: BMI 37.2
[2021-07-14 09:17] VITALS: RESP 18; TEMP 97.8
[2021-07-14] MEDS ORDERED: LIDOCAINE 1% (10MG/ML) FOR IV START INTRADERMA ONE (09:19)
[2021-07-14] MEDS ORDERED: PROPOFOL 10 MG/ML 20 ML VIAL IV ONE (10:37)
[2021-07-14] MEDS ORDERED: LIDOCAINE 2% INJ 20 MG/ML (2 ML VIAL) ONE (10:37)
--- NOTE | 2021-07-14 10:56 | P.PCN ---
Date of Procedure: 07/14/21 Procedure(s) Performed: BRIEF HISTORY: Patient is a 51-year-old, pleasant, white female scheduled for an upper endoscopy as a part of evaluation of chronic epigastric pain for the last few months duration. She was admitted discharged on omeprazole 20 mg daily and symptoms are gradually improving.. PROCEDURE PERFORMED: Esophagogastroduodenoscopy with biopsy. PREOPERATIVE DIAGNOSIS: Epigastric pain of 6 months duration. IV sedation per anesthesia. PROCEDURE: After informed consent was obtained, the patient was brought into the endoscopy unit. IV sedation was administered by Anesthesia under continuous monitoring. Initially the Olympus GIF-140 video endoscope was inserted into the mouth. Esophagus intubated without any difficulty. It was gradually advanced into the stomach and duodenum and carefully examined. The bulb and the second part of the duodenum appeared normal. The scope at this time was withdrawn to the stomach, adequately insufflated with air, and upon careful examination, mucosa of the antrum, body, had diffuse gastritis and biopsies were done from this area. The cardia and the fundus appeared normal. The scope was then withdrawn into the esophagus. The GE junction was located at 39 cm from the incisors. It appeared slightly redundant irregular. The esophagus appeared normal. There were no erosions or ulcerations seen , biopsies were done from the distal esophagus and the patient tolerated the procedure well. IMPRESSION: 1. Mild antral erosive gastritis. 2. No evidence of esophagitis or peptic ulcer disease. RECOMMENDATIONS: The findings of this examination were discussed with the patient as well as a family. She was advised to follow with the biopsy results. Continue with Prilosec 20 mg daily and follow antireflux measures..
[2021-07-14 11:35] VITALS: BP 137/87; PULSE 81
== END 2021-07-14 11:47 | disposition home or self-care (01) ==
LOC: ORWHC2ENDO 08:15
PROVIDERS: ATTEND Internal Medicine Gastroenterology
DX: K29.50 Unspecified chronic gastritis without bleeding (principal); I10 Essential (primary) hypertension; K21.9 Gastro-esophageal reflux disease without esophagitis; Z79.899 Other long term (current) drug therapy
CPT/HCPCS: 88305; 43239; J2704; J2001

== ENCOUNTER → 2021-07-14 | Outpatient (CLI) | payer BC, OTHER ==
--- NOTE | 2021-07-14 08:50 | US ---
EXAMINATION TYPE: US abdomen complete DATE OF EXAM: 07/14/2021 COMPARISON: NONE CLINICAL HISTORY: EPIGASTRIC PAIN. chronic epigastric pain EXAM MEASUREMENTS: Liver Length: 13.9 cm Gallbladder Wall: 0.2 cm CBD: 0.36 cm Spleen: 10.3 cm Right Kidney: 11.2 x 5.2 x 5.2 cm Left Kidney: 11.0 x 5.5 x 5.2 cm Pancreas: Obscured by bowel gas Liver: wnl Gallbladder: wnl. Difficult to get artifact out due to bowel gas Evidence for sonographic Kirkland's sign: No CBD: wnl Spleen: wnl Right Kidney: wnl Left Kidney: wnl Upper IVC: wnl Abd Aorta: wnl The visualized liver is homogeneous. The intrahepatic portion of the IVC and proximal abdominal aort a are within normal limits. There is no evidence of shadowing mobile cholelithiasis. Common bile du ct is unremarkable. Suboptimal evaluation of pancreas on initial images. The spleen is unremarkable. Kidneys are symmetric and free of hydronephrosis. No renal lesions are seen. IMPRESSION: Suboptimal evaluation of pancreas otherwise unremarkable study.
== END | disposition home or self-care (01) ==
LOC: RADUSWWP 06:59
PROVIDERS: ATTEND Family Medicine
DX: Z12.11 Encounter for screening for malignant neoplasm of colon (principal); K21.9 Gastro-esophageal reflux disease without esophagitis; R10.13 Epigastric pain
CPT/HCPCS: 76700; 77063; 77067

== ENCOUNTER → 2022-10-04 | Outpatient (CLI) | payer BC ==
--- NOTE | 2022-10-04 09:30 | US ---
EXAMINATION TYPE: US abdomen complete DATE OF EXAM: 10/04/2022 COMPARISON: NONE 07/14/2021 CLINICAL INDICATION: Female, 52 years old with history of R10.13 EPIGASTRIC PAIN; pain spanning acro ss upper abdomen after eating x 3 months TECHNIQUE: Multiple sonographic images of the abdomen are obtained. 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 The intrahepatic portion of the IVC and proximal abdominal aorta are within normal limits. There is no evidence of cholelithiasis. Common bile duct is unremarkable. The visu alized portions of the pancreas are homogenous. The spleen is unremarkable. Kidneys are symmetric a nd free of hydronephrosis. No renal lesions are seen. IMPRESSION: 1. Limited evaluation the liver and pancreas. 2. No evidence for acute process.
--- NOTE | 2022-10-05 10:22 | MM ---
Reason for Exam: Screening (asymptomatic). Last mammogram was performed 1 year(s) and 3 month(s) ago. Patient History: Menarche at age 12. First Full-Term at age 19. Hysterectomy at age 35. Postmenopausal. Patient has history of breast feeding. Paternal aunt had breast cancer. Paternal aunt had breast cancer. Risk Values: Amalia 5 year model risk: 0.8%. NCI Lifetime model risk: 6.3%. Prior Study Comparison: 04/01/2017 Bilateral Screening Mammogram, [facility]. 09/22/2019 Bilateral Screening Mammogram, [facility]. 07/14/2021 Bilateral MG 3D screening mammo w/cad, [facility]. Tissue Density: There are scattered fibroglandular densities. Findings: Analyzed By CAD. There is no suspicious group of microcalcifications or new suspicious mass in either breast. Overall Assessment: Negative, BI-RAD 1 Management: Screening Mammogram of both breasts in 1 year. . Patient should continue monthly self-breast exams. A clinical breast exam by your physician is recommended on an annual basis. This exam should not preclude additional follow-up of suspicious palpable abnormalities. Note on Amalia scores and lifetime risk: 1. A Amalia score greater than 3% is considered moderate risk. If this is the case, consider specialist referral to assess eligibility for a risk reducing agent. 2. If overall lifetime risk for the development of breast cancer is 20% or higher, the patient may qualify for future screening with alternating mammogram and breast MRI. Electronically signed and approved by: Fareed Camilo M.D. Radiologis
== END | disposition home or self-care (01) ==
LOC: RADMAMWWP 07:54
PROVIDERS: ATTEND Family Medicine
DX: Z12.31 Encounter for screening mammogram for malignant neoplasm of breast (principal); R10.13 Epigastric pain; Z78.0 Asymptomatic menopausal state; Z80.3 Family history of malignant neoplasm of breast
CPT/HCPCS: 76700; 77063; 77067

== ENCOUNTER → 2022-10-16 | Outpatient (CLI) | payer BC ==
--- NOTE | 2022-10-16 10:18 | NM ---
Nuclear medicine hepatobiliary scan. HISTORY: Pain. DOSAGE: The patient received 8 0z Ensure plus and 5.1 mCi of Technetium 99m Choletec. FINDINGS: There is normal hepatic extraction. The gallbladder is seen by 10 minutes. There is bilia ry to bowel clearance by 20 minutes. Ejection fraction is 67%. IMPRESSION: 1. Normal hepatobiliary exam
== END | disposition home or self-care (01) ==
LOC: RADNMMAIN 06:57
PROVIDERS: ATTEND Family Medicine
DX: R10.13 Epigastric pain (principal)
CPT/HCPCS: 78226; A9537